=== PATIENT | male | born 2000 | race Caucasian/White ===

== ENCOUNTER 2021-05-09 21:15 | Emergency (ER) | payer OTHER ==
[~2021-05-09] VITALS: Ht 172.7 cm; Wt 77.1 kg
[2021-05-09 21:34] VITALS: BP 138/74
--- NOTE | 2021-05-09 21:40 | NUR ---
21 YO M BIB SELF WITH C/C OF IN GROWN TOENAIL ON R BIG TOE [id number]. PT STATES HE HAS 10/10 PAIN, WOSENS WITH MOVEMENT, BETTER WHEN NOT APPLYING PRESSURE. PT STATES BLOOD AND PUS HAS BEEN DRAINING. PT DENIES TAKING MEDICATION FOR PAIN. FOOT IS WARM TO TOUCH, BLOODY DRAINAGE IS VISIBLE. PT IS SITTING UP IN BED. ALL NEEDS MET THIS TIME. DENIES HX AND RX NKA
[2021-05-09] MEDS ORDERED: KETOROLAC 60 MG/2 ML VIAL IM ONE (22:10)
--- NOTE | 2021-05-09 22:35 | NUR ---
PT IS SITTING UP IN BED. ALL NEEDS MET AT THIS TIME. BED LOCKED IN LOWEST POSITION.
--- NOTE | 2021-05-09 23:37 | NUR ---
Dr. Lagos examining patient.
[2021-05-09] MEDS ORDERED: LIDOCAINE MPF 1% 10 MG/ML VIAL INJ ONE (23:40)
--- NOTE | 2021-05-10 00:09 | NUR ---
Dr. Lagos at bedside for procedure
[2021-05-10] MEDS ORDERED: CEPH-588 PO (00:18)
[2021-05-10] MEDS ORDERED: ACET-8386 PO (00:18)
[2021-05-10] MEDS ORDERED: IBUP-2213 PO (00:18)
--- NOTE | 2021-05-10 00:36 | NUR ---
emt at bedside bandaging site.
[2021-05-10 00:45] VITALS: BP 134/72
--- NOTE | 2021-05-10 00:45 | NUR ---
Patient discharged with v/s stable. Written and verbal after care instructions given and explained. Patient alert, oriented and verbalized understanding of instructions. Ambulatory with steady gait. All questions addressed prior to discharge. ID band removed. Patient advised to follow up with PMD. Rx of KEFLEX,NORCO, AND IBUPROFEN given. Patient educated on indication of medication including possible reaction and side effects. Opportunity to ask questions provided and answered.
== END 2021-05-10 00:45 | disposition home or self-care (01) ==
LOC: MED 21:15
DX: L60.0 Ingrowing nail (principal); L03.031 Cellulitis of right toe
CPT/HCPCS: 11730; 96372; 99283; J1885; J2001